=== PATIENT | female | born 1980 | race Caucasian/White ===

== ENCOUNTER 2016-12-25 03:46 | Emergency (ER) | payer OTHER | END 2016-12-25 04:40 | disposition home or self-care (01) | LOC: ER 03:46 | DX: H60.501 Unspecified acute noninfective otitis externa, right ear (principal); J06.9 Acute upper respiratory infection, unspecified; B37.0 Candidal stomatitis; M10.9 Gout, unspecified; G47.419 Narcolepsy without cataplexy; F17.210 Nicotine dependence, cigarettes, uncomplicated; Z79.899 Other long term (current) drug therapy | CPT/HCPCS: 99282 ==